=== PATIENT | female | born 1950 | race Caucasian/White ===

== ENCOUNTER → 2016-08-02 | Outpatient (CLI) | payer MEDICARE, BC ==
[~2016-08-02] MED LIST: BENAZEPRIL PO; DYAZIDE 37.5/251 CAP PO; FISH OIL 1,0001 CA2 PO; PREMPRO PO; VAGIFEM10 MCG VG; VITAMIN D35000 UNIT PO
--- NOTE | ~2016-08-02 | MR32 ---
[facility] A Service of [facility] & [facility] RADIOLOGY TEXT RESULTS PATIENT: CHARLI NOLEN LOCATION: [facility] : 46 UNIT #: [id number] AGE: [address]: MAGALIE BOSTON MD SEX: F ORDER DR: [id number] [address] [address] [id number] O MR#: [id number] Acc #: [id number] NAME: CHARLI NOLEN : 1950 SEX: F STUDY DATE/TIME: 08/02/2016 10:48 UNIT: [facility] ROOM: STUDY DESCRIPTION: MR Cervical Wo Contrast Attending Physician: Magalie Boston M.D. Referring Physician: Magalie Boston M.D. Ordering Physician: Magalie Boston M.D. Primary Care Physician: Magalie Boston M.D. MRI CENTER REPORT This report is preliminary unless electronic signature is present. EXAM Cervical MRI. HISTORY Neck pain over the past 2 years with bilateral upper extremity numbness and decreased coordination. TECHNIQUE Multiplanar imaging of the cervical spine was performed with short and long TR. FINDINGS Multilevel cervical degenerative disc disease is seen. At C2-3, the disc is desiccated. Uncovertebral joint osteophytes are seen bilaterally, larger on the left than on the right. Foraminal narrowing is mild on the right and moderate left, and there is also asymmetric relative left-sided facet hypertrophy contributing to this. At C3-4, there is marked facet hypertrophy on the left with severe left foraminal narrowing. Central stenosis and right foraminal narrowing are mild. At C4-5, there is a congenitally partially fused disc. The canal and foramina are widely patent. At C5-6, there is a significant retrolisthesis of C5 on C6 with a step-off of approximately 5-6 mm. There is a broad-based posterior disc osteophyte complex that is larger to the left than to the right. There is severe central stenosis with cord compression especially to the left of midline. In the midline, the AP diameter canal of the spinal canal is 8 mm, and it is much less to the left of midline. The cord is compressed at this level. There is severe bilateral foraminal narrowing. There is mild STS. [facility] A Service of [facility] RADIOLOGY TEXT RESULTS PATIENT: CHARLI NOLEN LOCATION: [facility] : 46 UNIT #: [id number] AGE: [address]: MAGALIE BOSTON MD SEX: F ORDER DR: increased T2 signal in the cord at this level as well probably representing myelomalacia from chronic cord compression. At C6-7, there is also a degenerative retrolisthesis with disc space collapse but not as severe as at the C5-6 level. There is asymmetry worse toward the right side at this level with the disc protrusion accompanying the osteophyte and the degenerative changes. Central stenosis is severe, and there is right-sided exiting nerve root compression from the disc. The left foramen is moderately narrowed. The C7-T1 level is unremarkable. There is no evidence of destructive bone lesion and no paraspinous soft tissue masses are seen. Mild chronic inflammatory changes are noted at the right mastoid tip. IMPRESSION 1. Multilevel degenerative disc disease as described above level by level with severe degenerative change at C5-6 and C6-7. At C5-6 there is 5-6 mm of retrolisthesis with severe central stenosis and asymmetric relative left-sided canal narrowing and cord compression. At C6-7 there is a severe central stenosis with a right-sided disc herniation at the entrance to the foramen. There is increased T2 signal and cervical cord at C5 and C6 probably representing myelomalacia from chronic compression. 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 There is left-sided facet hypertrophy at C2-3 and C3-4 with tight left foraminal narrowing at these 2 levels. Dictated by... Pankaj Thomas M.D. THIS IS AN ELECTRONICALLY VERIFIED REPORT Pankaj Thomas M.D. at 08/07/2016 5:48 AM DORENE/demetrice TD: 08/02/2016 19:56 JOB #: [id number] MRI CENTER REPORT Page 1 of 1
== END | disposition home or self-care (01) ==
LOC: SMRI 10:24
DX: R20.2 Paresthesia of skin (principal); R29.2 Abnormal reflex; M50.323 Other cervical disc degeneration at C6-C7 level; M47.892 Other spondylosis, cervical region; M43.12 Spondylolisthesis, cervical region; G95.20 Unspecified cord compression; M99.81 Other biomechanical lesions of cervical region; M48.02 Spinal stenosis, cervical region; M50.223 Other cervical disc displacement at C6-C7 level
CPT/HCPCS: 72141

== ENCOUNTER → 2016-10-28 | Outpatient (CLI) | payer MEDICARE, BC ==
--- NOTE | ~2016-10-28 | CR58 ---
[facility] A Service of [facility] & [facility] RADIOLOGY TEXT RESULTS PATIENT: CHARLI NOLEN LOCATION: [facility] : 46 UNIT #: [id number] AGE: [address]: HONORIO FRANCOIS APRN SEX: F ORDER DR: [id number] [address] [address] [id number] O MR#: [id number] Acc #: [id number] NAME: CHARLI NOLEN : 1950 SEX: F STUDY DATE/TIME: 10/28/2016 10:35 UNIT: [facility] ROOM: STUDY DESCRIPTION: CR Cervical Spine 2 or 3 Views Attending Physician: Honorio Francois A.P.R.N. Referring Physician: Honorio Francois A.P.R.N. Ordering Physician: Honorio Francois A.P.R.N. Primary Care Physician: Vera Caceres M.D. MEDICAL IMAGING REPORT This report is preliminary unless electronic signature is present. EXAM C-spine 3 views. HISTORY: Surgery followup status post C5-6, C6-7 fusion. FINDINGS Three views of the cervical spine demonstrates postoperative changes from C5-6 and C6-7 discectomy and anterior cervical fusion procedure. No fracture or loosening instrumentation. Minimal prevertebral soft tissue swelling. There is C4-5 of disc space narrowing and one would question previous C4-5 fusion. There is also apparent fusion across the facet joints at C4-5. The atlantoaxial joint unremarkable. C2-3 and C3-4 disc spaces appear normal. The upper thorax unremarkable. IMPRESSION 1. Status post C5-6 and C6-7 discectomy and anterior cervical fusion with intact anterior fixation plate and vertebral body screws. Minimal prevertebral soft tissue swelling. 2. Change of the C4-5 disc space suggest previous cervical fusion with fusion of the posterior elements at the C4-5 level. Dictated by... Benjamin Conde M.D. THIS IS AN ELECTRONICALLY VERIFIED REPORT Benjamin Conde M.D. at 10/29/2016 5:07 PM ANTONIO/cirilo TD: 10/29/2016 08:24 [facility] A Service of [facility] & [facility] RADIOLOGY TEXT RESULTS PATIENT: CHARLI NOLEN [id number] 46 UNIT #: [id number] AGE: [address]: HONORIO FRANCOIS APRN SEX: F ORDER DR: ZEKE #: [id number] MEDICAL IMAGING REPORT Page 1 of 1
== END | disposition home or self-care (01) ==
LOC: SRAD 10:19
DX: G95.20 Unspecified cord compression (principal); G95.9 Disease of spinal cord, unspecified; Z98.1 Arthrodesis status
CPT/HCPCS: 72040